=== PATIENT | female | born 1990 | race Caucasian/White ===

== ENCOUNTER 2018-11-07 20:14 | Inpatient (IN) | payer BC ==
[2018-11-07 20:52] VITALS: BMI 25.0
[2018-11-07] MEDS ORDERED: Lidocaine 1% (PF) 30 ML VIAL SC PRN (21:12)
[2018-11-07] MEDS ORDERED: Carboprost 250 MCG/ML AMP IM PRN (21:12)
[2018-11-07] MEDS ORDERED: Lactated Ringer's 1,000 ML IV PRN (21:12)
[2018-11-07] MEDS ORDERED: Ibuprofen 800 MG TAB PO PRN (21:12)
[2018-11-07] MEDS ORDERED: Diphenoxylate HCl/Atropine Tablet PO PRN ×2 (21:12)
[2018-11-07] MEDS ORDERED: Ondansetron PF 4 MG/2 ML Vial IVP PRN (21:12)
[2018-11-07] MEDS ORDERED: HYDROcodone/Acetaminophen 5/325 mg Tablet PO PRN ×2 (21:12)
[2018-11-07] MEDS ORDERED: Promethazine HCl 25 MG/ML VIAL IM PRN (21:12)
[2018-11-07] MEDS ORDERED: Methylergonovine 0.2 MG/ML VIAL IM PRN (21:12)
[2018-11-07] MEDS ORDERED: NS / Oxytocin 40 units/1000ml 1,000 ML IV PRN (21:12)
--- NOTE | 2018-11-07 21:17 | PDOC.LDHP ---
Labor and Delivery H&P Chief complaint: contractions (and leaking) HPI: Pt was seen in clinic today for INA visit. She reported questionable signs of rupture from earlier in the week, but thought she was urinating on herself when she was relaxing through contractions. In the office today, an amnisure was collected and rupture was confirmed. She was notified by myself her primary provider to arrive to hospital for monitoring and augmentation if indicated. Current gestational age (weeks): 40 Dating criteria: last menstrual period Grav: 3 Para: 1 OB History Details: G1 SAB at 40.2. no laceration. no complications G3 current Current complications: none Abnormal US findings: No Current medications: pre- vitamins Allergies/Adverse Reactions: Allergies Allergy/AdvReac Type Severity Reaction Status Date / Time Sulfa (Sulfonamide Allergy Verified 05/07/17 08:53 Antibiotics) Social history: none - Physical Exam Vital signs reviewed and normal: yes General: resting Heart: RRR Lungs: nonlabored breathing Abdomen: gravid Extremeties: no edema FHT: category 1 [place] contractions every: [id number] - Vaginal Exam cm dilated: 4 Effacement: 90% Station: -1 - OB Labs Blood type: B RH: positive Antibody Screen: negative HIV: negative RPR: negative HEPSAg: negative 1 hour GCT: negative GBS: negative Urine drug screen: negative - Assessment L&D Assessment: term rupture in membranes - Plan Plan: admit to L&D, labor augmentation if indicated -: antibiotics if indicated by maternal or signs of chorioamnionitis. AROM remaining membranes Pitocin for augmentation if active labor patter is not achieved Anticipate
[2018-11-07 21:56] LABS: Mean Corpuscular Hemoglobin 31.3 pg (27.0-31.0); Mean Platelet Volume 8.3 fL (7.4-10.4); Platelet Count 159 thou/uL (130-400); RBC Distribution Width 11.4 % (11.5-14.5); Red Blood Cell (RBC) Count 3.83 mill/uL (4.20-5.40)
[2018-11-07 22:35] LABS: Syphilis Antibody Nonreactive (Nonreactive); Syphilis Antibody Index 0.03 S/CO (<1.00 Non-Reactive)
[2018-11-07 23:10] LABS: HBSAg Index 0.21 S/CO (0-0.99); Hep B Surf Ag Non-Reactive S/CO (NonReactive)
--- NOTE | 2018-11-08 00:33 | PDOC.OPDEL ---
OB Operative/Delivery Note Delivery Dr/Surgeon: Vinh Lincoln CNM Pre-Delivery Diagnosis: active labor Procedure/Post Delivery Dx: spontaneous vaginal delivery Weeks gestation: 40 Anesthesia: none - Findings A Sex: male Weight: 8 lb 13 oz - 1 min: 8 - 5 min: 9 - Additional Findings/Plan Placenta delivered: spontaneous Repaired Obstetrical Laceration: none Estimated blood loss: 75 QBL Compilations/Other Findings: compound delivery with the infants left hand. Post delivery plan: routine recovery
--- NOTE | 2018-11-08 01:05 | PDOC.PP ---
Post Progress Note Post Day #: 1 Subjective: Pt is doing well. having afterbirth pains with . Her butt is feeling better with ice PO intake tolerated: yes Ambulation: yes Vital Signs (12 hours) Temp Pulse Resp BP 11/07/18 20:44 98.7 F 87 16 104/61 Weight Weight 150 lb - Physical Examination General: NAD Respiratory: non-labored breathing Abdominal: + bowel sounds, lochia (minimal) Extremities: negative homans (B) Skin: no rash Neurological: no gross focal deficits Psychiatric: A&Ox3, normal affect Result Diagrams: 11/07/18 21:42 Additional Labs: Post Labs Blood Type B POSITIVE 11/07/18 21:42 Hep Bs Antigen Non-Reactive S/CO (NonReactive) 11/07/18 21:42 (1) (spontaneous vaginal delivery) Code(s): O80 - ENCOUNTER FOR FULL-TERM UNCOMPLICATED DELIVERY Status: Acute (2) 40 weeks gestation of Code(s): Z3A.40 - 40 WEEKS GESTATION OF Status: Acute - Assessment/Plan A G3 now P2 s/p No, complications P: routine care Discharge home on Saturday.
[2018-11-08] MEDS ORDERED: Milk Of Magnesia 30 ML UDCUP PO PRN (02:14)
[2018-11-08] MEDS ORDERED: Benzocaine/Menthol 20-0.5% 60 ML CAN TOP PRN (02:14)
[2018-11-08] MEDS ORDERED: Methylergonovine 0.2 MG/ML VIAL IM PRN (02:14)
[2018-11-08] MEDS ORDERED: Ondansetron PF 4 MG/2 ML Vial IVP PRN (02:14)
[2018-11-08] MEDS ORDERED: NS / Oxytocin 40 units/1000ml 1,000 ML IV SCH (02:14)
[2018-11-08] MEDS ORDERED: Bisacodyl 10 MG SUPP PR PRN (02:14)
[2018-11-08] MEDS ORDERED: HYDROcodone/Acetaminophen 5/325 mg Tablet PO PRN ×2 (02:14)
[2018-11-08] MEDS ORDERED: Misoprostol 200 MCG TAB VAG PRN (02:14)
[2018-11-08] MEDS: Ibuprofen 800 MG TAB PO SCH ×2 (05:28→17:54)
[2018-11-08] MEDS ORDERED: Adacel (T-DAP) 0.5 ML SYRINGE IM ONE (09:00)
[2018-11-08] MEDS ORDERED: Measles/Mumps/Rubella 10 MCG/0.5 ML VIAL SC ONE (09:00)
[2018-11-08] MEDS: Ferrous Sulfate 325 MG TAB PO SCH ×2 (17:53→17:55)
[2018-11-08] MEDS: Docusate Calcium (SURFAK) 240 MG CAP PO SCH (17:53)
[2018-11-08] MEDS: Prenatal Vitamin 1 TAB PO SCH (17:53)
[2018-11-09] MEDS: Docusate Calcium (SURFAK) 240 MG CAP PO SCH ×2 (00:15→08:34)
[2018-11-09] MEDS: Ibuprofen 800 MG TAB PO SCH ×2 (00:17→03:54)
--- NOTE | 2018-11-09 07:59 | PDOC.PP ---
Post Progress Note Post Day #: 2 Subjective: pt is doing well. some pain with - she is worried about a tongue tie PO intake tolerated: yes Flatus: yes Ambulation: yes Vital Signs (12 hours) Temp Pulse Resp BP Pulse Ox 11/09/18 00:22 97.9 F 67 16 106/60 11/08/18 20:05 98.4 F 87 16 110/66 97 Weight Weight 150 lb - Physical Examination General: NAD Cardiovascular: no m/r/g, RRR Respiratory: non-labored breathing Abdominal: no distention Extremities: negative homans (B) Skin: no rash Neurological: no gross focal deficits Psychiatric: A&Ox3, normal affect Result Diagrams: 11/07/18 21:42 Additional Labs: Post Labs Blood Type B POSITIVE 11/07/18 21:42 Hep Bs Antigen Non-Reactive S/CO (NonReactive) 11/07/18 21:42 (1) (spontaneous vaginal delivery) Code(s): O80 - ENCOUNTER FOR FULL-TERM UNCOMPLICATED DELIVERY Status: Acute (2) 40 weeks gestation of Code(s): Z3A.40 - 40 WEEKS GESTATION OF Status: Acute - Assessment/Plan A; G3 now p2 s/p at 40.3. P: discharge home today 6 weeks visit.
[2018-11-09] MEDS: Ferrous Sulfate 325 MG TAB PO SCH (08:00)
[2018-11-09] MEDS: Prenatal Vitamin 1 TAB PO SCH (08:35)
[2018-11-09 08:48] VITALS: BP 112/63; TEMP 98.8
== END 2018-11-09 10:00 | disposition home or self-care (01) | DRG 807 ==
LOC: L&D/OP 20:14 → L&D-LIB 21:50 → 3SW 11-08 02:59
PROVIDERS: ADMIT Obstetrics & Gynecology; ATTEND Obstetrics & Gynecology
PROC: 10E0XZZ Delivery of Products of Conception, External Approach (ICD-10-PCS; principal; 2018-11-09)
DX: O48.0 Post-term pregnancy (principal); Z37.0 Single live birth; Z3A.40 40 weeks gestation of pregnancy; Z88.2 Allergy status to sulfonamides
CPT/HCPCS: 36415; 84112; 85027; 86780; 86850; 86900; 86901; 87340; J2001